=== PATIENT | female | born 1995 | race Two or more races ===

== ENCOUNTER 2021-12-15 23:57 | Emergency (ER) | payer MEDICAID ==
[~2021-12-15] VITALS: Ht 160 cm; Wt 99.1 kg
[2021-12-16 00:31] VITALS: BP 157/93
[2021-12-16] MEDS ORDERED: acetaminophen 325mg tablet PO ONE (00:35)
== END 2021-12-16 03:52 | disposition home or self-care (01) ==
LOC: ER 23:58
DX: R51.9 Headache, unspecified (principal); R11.0 Nausea; R53.1 Weakness
CPT/HCPCS: 70450; 99284